=== PATIENT | female | born 1960 | race Caucasian/White ===

== ENCOUNTER 2019-11-13 11:10 | Emergency (ER) | payer BC, SELFPAY ==
--- NOTE | ~2019-11-13 | XR_ITS ---
EXAMINATION: XR knee RT 3V DATE: 11/13/2019 12:44 INDICATION: Anterior right knee pain. Injury. TECHNIQUE: 3 views of right knee were obtained. COMPARISON: None. FINDINGS: Bone alignment is normal. No fracture. There is a 1.7 cm sclerotic lesion in distal femoral metaphysis. There is mild osteoarthritis of medial and patellofemoral compartments characterized by tiny marginal osteophytes. There is a moderate-sized knee joint effusion. IMPRESSION: 1. Mild right knee osteoarthritis. 2. Moderate-sized right knee joint effusion. 3. Sclerotic lesion in distal femoral metaphysis. In the absence of known malignancy, this finding is likely an enchondroma or osteonecrosis. Reviewed, dictated and finalized at location A. INE STITCHER IMPRESSION: 1. Mild right knee osteoarthritis. 2. Moderate-sized right knee joint effusion. 3. Sclerotic lesion in distal femoral metaphysis. In the absence of known malig kerri, this finding is likely an enchondroma or osteonecrosis.
[2019-11-13 11:16] VITALS: BP 113/72; PULSE 82; RESP 16; TEMP 37.5; O2SAT 97
--- NOTE | 2019-11-13 13:28 | ED.GENADULT ---
HPI - General Adult General Chief complaint: Extremity Injury, Lower <Mario Jackson PA-C - Last Filed: 11/13/19 13:40> Stated complaint: R knee injury <Mario Jackson PA-C - Last Filed: 11/13/19 13:40> Time Seen by Provider: 11/13/19 11:20 <Mario Jackson PA-C - Last Filed: 11/13/19 13:40> Source: patient <MARA Gonzalez Last Filed: 11/13/19 13:40> Mode of arrival: ambulatory <Mario Jackson PA-C - Last Filed: 11/13/19 13:40> Limitations: no limitations <Mario Jackson PA-C - Last Filed: 11/13/19 13:40> History of Present Illness HPI narrative: Patient is a 59-year-old female who presents to emergency department for evaluation of right knee injury that occurred yesterday when the dog ran into the right side of her knee patient notes aching pain with swelling and tenderness that radiates down the leg has not been seen for this complaint has been able to bear weight presents per private vehicle in no distress <Mario Jackson PA-C - Last Filed: 11/13/19 13:40> Related Data Home medications: Home Medications Medication Instructions Recorded Confirmed calcium carbonate [Calcium 500] 500 mg PO BID 07/12/19 08/16/19 cholecalciferol (vitamin D3) 400 unit PO DAILY 07/12/19 08/16/19 [Vitamin D3] <Mario Jackson PA-C - Last Filed: 11/13/19 13:40> Allergies/adverse reactions: Allergies Allergy/AdvReac Type Severity Reaction Status Date / Time No Known Allergies Allergy Unknown Verified 11/13/19 11:26 <Mario Jackson PA-C - Last Filed: 11/13/19 13:40> Review of Systems Review of Systems: Narrative: CONSTITUTIONAL: Denies fever, chills, or sweats. SKIN: Positive for bruising and swelling MUSCULOSKELETAL: Positive for right knee pain and swelling NEUROLOGIC: Denies numbness <Mario Jackson PA-C - Last Filed: 11/13/19 13:40> PMFSH Past Medical History Medical History: Medical History Admission for breast augmentation Inguinal hernia Tobacco abuse <Mario Jackson PA-C - Last Filed: 11/13/19 13:40> Surgical History Surgical History: Surgical History H/O breast biopsy S/P ear surgery <Mario Jackson PA-C - Last Filed: 11/13/19 13:40> Social History Social History: Social History Smoking packs per day: 0.5 Smoking cigarettes per day: 10.0 Years smoked: 30 Smoking pack-years: 15.00 Gender identity (if verbalized by the patient): Female <Mario Jackson PA-C - Last Filed: 11/13/19 13:40> Exam Narrative: Exam Narrative: GENERAL: Well-appearing, well-nourished, and in no acute distress. HEAD: Normocephalic, atraumatic. EYES: PERRLA and EOMI. ENT: Nares clear, no rhinorrhea or epistaxis. Mucous membranes moist. Oropharynx without tonsillar hypertrophy exudate or other lesions. Bilateral TMs pearly hernandez nonbulging NECK: Supple. No adenopathy or masses. No carotid bruits or JVD CHEST: Clear to auscultation. No respiratory distress. No wheezes rales or rhonchi HEART: Regular rate and rhythm. No murmur heard. Normal peripheral pulses. ABDOMEN: Soft, nontender, nondistended, normal active bowel sounds. EXTREMITIES: Bruising swelling and tenderness to the lateral aspect of the right knee joint SKIN: Warm, dry, no rash. NEURO: No focal deficits. Alert and oriented x3. PSYCH: Normal mood and affect. <Mario Jackson PA-C - Last Filed: 11/13/19 13:40> Course Course Emergency Course: Patient in the room in no distress aware of case findings treatment plan and diagnosis agreeing to follow-up as directed or to return if symptoms worsen or concerns <Mario Jackson PA-C - Last Filed: 11/13/19 13:40> Vital Signs Vital signs: Vital Signs Temperature 37.5 C 11/13/19 11:16 Pulse Rate 82 11/13/19 11:16 Res
[2019-11-13 13:51] VITALS: BP 119/72; PULSE 82; RESP 18; O2SAT 100
== END 2019-11-13 13:51 | disposition home or self-care (01) ==
PROVIDERS: Emergency Provider Emergency Medicine; PCP Internal Medicine
DX: S83.206A Unspecified tear of unspecified meniscus, current injury, right knee, initial encounter (principal); F17.210 Nicotine dependence, cigarettes, uncomplicated; M17.11 Unilateral primary osteoarthritis, right knee; M89.9 Disorder of bone, unspecified
CPT/HCPCS: 73562; 99283

== ENCOUNTER 2022-11-05 14:40 | Outpatient (CLI) | payer BC, SELFPAY ==
--- NOTE | ~2022-11-05 | XR_ITS ---
XR chest 2V 11/05/2022 14:56 Indication: Cough and congestion Procedure: 2 view chest Comparison: No prior studies for comparison. Findings: Heart size normal. No focal air space disease, pulmonary edema, pleural effusion or suspect ed pneumothorax. The lungs are hyperinflated which is consistent with, but not diagnostic of chronic obstructive pulmonary disease. Calcified granuloma left mid thorax. Impression: 1: No acute cardiopulmonary disease. Reviewed, dictated and finalized at location B. [employer]TER Impression: 1: No acute cardiopulmonary disease.
== END 2022-11-05 14:41 | disposition home or self-care (01) ==
PROVIDERS: PCP Internal Medicine; Visit Provider Internal Medicine
DX: R05.9 Cough, unspecified (principal)
CPT/HCPCS: 71046